=== PATIENT | female | born 1940 | race Caucasian/White ===

== ENCOUNTER 2022-01-02 14:52 | Outpatient (CLI) | payer MEDICARE, SELFPAY ==
[2022-01-02 11:58] LABS: CREATININE 1.7 mg/dL (0.55-1.02); Estimated GFR 29.94 (mL/min/1.73m2)
== END 2022-01-02 14:53 | disposition home or self-care (01) ==
LOC: LBO 14:56
PROVIDERS: Visit Provider Radiology Radiation Oncology
DX: C54.1 Malignant neoplasm of endometrium (principal)
CPT/HCPCS: 36415; 82565

== ENCOUNTER 2022-01-24 03:28 | Outpatient (RCR) | payer MEDICARE, BC, SELFPAY ==
[2022-01-24 08:38] LABS: Abs Immature Grans 0.02 10^3/uL (0.0-0.06); Absolute Basophil Count 0.04 10^3/uL (0.0-0.2); Absolute Eosinophil Count 0.13 10^3/uL (0.0-0.7); Absolute Lymphocyte Count 1.64 10^3/uL (1.2-3.4); Absolute Monocyte Count 0.55 10^3/uL (0.1-0.8); Basophils % 0.7; Eosinophils % 2.3; HCT 37.6 % (36.0-46.0); HGB 12.3 g/dL (11.2-15.7); Immature Grans % 0.4; Lymphocytes % 28.9; MCH 30.3 pg (27.0-33.0); MCHC 32.7 % (32.0-36.0); MCV 93 fL (80-95); MPV 9.1 fL (8.0-11.0); Monocytes % 9.7; Platelet Count 195 10^3/uL (130-400); RBC 4.06 10^6/uL (3.93-5.22); RDW 13.3 % (11.7-14.6); RDW-SD 45.7 fL; WBC 5.68 10^3/uL (4.4-10.8)
[2022-01-24] MEDS: Normal Saline Flush 10 ML SYR IVP (08:38)
[2022-01-24 09:07] LABS: ALT 12 U/L (14-59); AST 15 U/L (15-37); Albumin 3.8 g/dL (3.4-5.0); Alkaline Phosphatase 142 U/L (46-116); Anion Gap 10.7 mmol/L (3-11); BUN 38 mg/dL (7-18); Bilirubin, Total 0.4 mg/dL (0.2-1.0); CO2 25.3 mmol/L (21.0-32.0); CREATININE 1.8 mg/dL (0.55-1.02); Calcium 9.5 mg/dL (8.5-10.1); Chloride 103 mmol/L (98-107); Estimated GFR 27.96 (mL/min/1.73m2); Glucose 105 mg/dL (74-106); Magnesium 2.2 mg/dL (1.8-2.4); Potassium 4.2 mmol/L (3.5-5.1); Sodium 139 mmol/L (136-145); Total Protein 7.6 g/dL (6.4-8.2)
== END 2022-01-25 23:59 | disposition home or self-care (01) ==
LOC: INF 03:28
PROVIDERS: Visit Provider Internal Medicine
DX: C54.1 Malignant neoplasm of endometrium (principal); Z45.2 Encounter for adjustment and management of vascular access device
CPT/HCPCS: 36591; 80053; 83735; 85025

== ENCOUNTER 2022-02-21 03:20 | Outpatient (RCR) | payer MEDICARE, BC, SELFPAY ==
[2022-01-30] MEDS: Normal Saline Flush 10 ML SYR IVP (14:07)
[2022-01-30] MEDS: Heparin 500 UNITS/5 ML SYRINGE (14:07)
[2022-01-30 14:42] LABS: ALT 21 U/L (14-59); AST 15 U/L (15-37); Albumin 3.3 g/dL (3.4-5.0); Alkaline Phosphatase 128 U/L (46-116); Anion Gap 7.5 mmol/L (3-11); BUN 31 mg/dL (7-18); Bilirubin, Total 0.3 mg/dL (0.2-1.0); CO2 28.5 mmol/L (21.0-32.0); CREATININE 1.3 mg/dL (0.55-1.02); Calcium 8.3 mg/dL (8.5-10.1); Chloride 102 mmol/L (98-107); Estimated GFR 41.31 (mL/min/1.73m2); Glucose 104 mg/dL (74-106); Potassium 4.4 mmol/L (3.5-5.1); Sodium 138 mmol/L (136-145); Total Protein 6.7 g/dL (6.4-8.2)
[2022-02-21] MEDS: Normal Saline Flush 10 ML SYR IVP (08:23)
[2022-02-21 08:36] LABS: Abs Immature Grans 0.04 10^3/uL (0.0-0.06); Absolute Basophil Count 0.05 10^3/uL (0.0-0.2); Absolute Eosinophil Count 0.51 10^3/uL (0.0-0.7); Absolute Lymphocyte Count 0.49 10^3/uL (1.2-3.4); Absolute Monocyte Count 0.49 10^3/uL (0.1-0.8); Absolute Neutrophil Count 2.86 10^3/uL (1.2-6.7); Basophils % 1.1; Eosinophils % 11.5; HCT 35.6 % (36.0-46.0); HGB 11.5 g/dL (11.2-15.7); Immature Grans % 0.9; MCH 30.9 pg (27.0-33.0); MCHC 32.3 % (32.0-36.0); MCV 96 fL (80-95); MPV 8.4 fL (8.0-11.0); Neutrophils % 64.5; Platelet Count 153 10^3/uL (130-400); RBC 3.72 10^6/uL (3.93-5.22); RDW 14.1 % (11.7-14.6); RDW-SD 48.7 fL; WBC 4.44 10^3/uL (4.4-10.8)
[2022-02-21 08:50] LABS: ALT 15 U/L (14-59); AST 16 U/L (15-37); Albumin 3.5 g/dL (3.4-5.0); Alkaline Phosphatase 128 U/L (46-116); BUN 24 mg/dL (7-18); Bilirubin, Total 0.4 mg/dL (0.2-1.0); CREATININE 1.7 mg/dL (0.55-1.02); Calcium 9.1 mg/dL (8.5-10.1); Chloride 107 mmol/L (98-107); Estimated GFR 29.94 (mL/min/1.73m2); Glucose 102 mg/dL (74-106); Sodium 143 mmol/L (136-145); Total Protein 6.9 g/dL (6.4-8.2)
== END 2022-02-25 23:59 | disposition home or self-care (01) ==
LOC: INF 03:20
PROVIDERS: PCP Physician Assistant Medical; Visit Provider Internal Medicine
DX: C54.1 Malignant neoplasm of endometrium (principal); Z45.2 Encounter for adjustment and management of vascular access device
CPT/HCPCS: 36591; 80053; 85025